=== PATIENT | female | born 1970 | race Caucasian/White ===

== ENCOUNTER 2017-12-31 12:47 | Outpatient (CLI) | payer MEDICARE | END 2017-12-31 12:48 | disposition home or self-care (01) | LOC: BICMAMMO 12:47 | PROVIDERS: ATTEND Family Medicine | DX: Z12.31 Encounter for screening mammogram for malignant neoplasm of breast (principal); Z80.3 Family history of malignant neoplasm of breast | CPT/HCPCS: 77063; 77067 ==

== ENCOUNTER 2018-04-02 19:32 | Emergency (ER) | payer MEDICARE, OTHER ==
[~2018-04-02 19:32] MED LIST: ISOVUE-370 76%-LOCM 1 ML ONE
[2018-04-02 20:26] LABS: #Eosinphils 0.7 thou/uL (0.0-0.7); #Lymphocytes 1.4 thou/uL (1.20-3.40); #Monocytes 0.9 thou/uL (0.11-0.59); #Neutrophils 11.7 thou/uL (1.40-6.50); %Basophils 0.3 % (0.0-1.0); %Eosinophils 4.9 % (0.0-10.0); %Lymphocytes 9.7 % (21.0-51.0); %Monocytes 5.8 % (0.0-10.0); %Neutrophils 79.3 % (42.0-75.0); Mean Corpuscular HGB CONC 34.1 g/dL (32.0-36.0); Mean Corpuscular Hemoglobin 32.9 pg (27.0-31.0); Mean Corpuscular Volume 96.5 fL (78.0-98.0); Mean Platelet Volume 8.5 fL (7.4-10.4); Platelet Count 241 thou/uL (130-400); RBC Distribution Width 12.8 % (11.5-14.5); Red Blood Cell (RBC) Count 4.25 mill/uL (4.20-5.40); White Blood Cell (WBC) Count 14.7 thou/uL (4.8-10.8)
[2018-04-02] MEDS ORDERED: Ondansetron HCl/PF 4 MG/2 ML Vial ONE (20:30)
[2018-04-02] MEDS ORDERED: Acetaminophen 500 MG TAB ONE (20:37)
[2018-04-02 20:50] LABS: ALT (SGPT) 7 U/L (8-55); AST (SGOT) 16 U/L (5-34); Albumin 4.3 g/dL (3.5-5.0); Alkaline Phosphatase 96 U/L (40-150); Anion Gap 13 mmol/L (10-20); BUN (Urea Nitrogen) 19 mg/dL (7.0-18.7); Bilirubin, Total 0.3 mg/dL (0.2-1.2); CK (CPK) 62 U/L (29-168); Calc. Creatinine Clearance 0 mL/min (70-130); Calcium 9.3 mg/dL (7.8-10.44); Carbon Dioxide 24 mmol/L (22-29); Chloride 109 mmol/L (98-107); Estimated GFR-MDRD 45; Globulin 2.9 g/dL (2.4-3.5); Glucose 80 mg/dL (70-105); Lipase 55 U/L (8-78); Potassium 4.3 mmol/L (3.5-5.1); Protein, Total 7.2 g/dL (6.0-8.3); Sodium 142 mmol/L (136-145)
[2018-04-02 20:54] LABS: CKMB 1.3 ng/mL (0-6.6); Troponin I Less than 0.010 ng/mL (< 0.028)
--- NOTE | 2018-04-02 21:31 | CT ---
CT OF ABDOMEN AND PELVIS 04/02/18 COMPARISON: None. HISTORY: Nausea, vomiting, cramping and diarrhea. TECHNIQUE: Serial axial CT imaging obtained at 5 mm intervals from lung bases through pubic symphysis with IV co ntrast. Coronal reformatted imaging obtained. FINDINGS: the imaged lung bases are unremarkable. There is no free intraperitoneal air or fluid. No focal liver lesion. The gallbladder and spleen are unremarkable. The pancreas, adrenal glands, and kidneys are unremarkable. The appendix is visualized and is within normal limits. The uterus is lobulated and demonstrates internal coarse calcifications suggesting fibroids. There is prominent diverticulosis of the lower descending colon a well as the sigmoid colon with no e vidence for diverticulitis. There is no evidence for large or small bowel obstruction. There may be minimal inflammatory stranding adjacent to the sigmoid colon superiorly although this is subtle and uncertain. In the proper clinical setting, a mild degree of diverticulitis cannot be excl uded. Vascular structures appear patent. No lymphadenopathy is seen. No acute osseous abnormality. IMPRESSION: 1. Extensive diverticulosis of the sigmoid colon and lower descending colon. A very mild degree of diverticulitis cannot be excluded. No evidence for bowel obstruction or free intraperitoneal air. 2. Normal appearance of the appendix. 3. Findings suggesting uterine fibroids. POS: [facility]
[2018-04-02 21:40] LABS: Bilirubin Negative (Negative); Blood, Urine Negative (Negative); Clarity CLEAR (Clear); Glucose, Urine (Dipstick) Negative (Negative); Leukocyte Negative (Negative); Nitrite Negative (Negative); Protein, Urine (Dipstick) Negative (Neg-Trace); Urobilinogen 0.2 mg/dL (0.2-1.0)
[2018-04-02 21:42] LABS: Specific Gravity, Urine Greater than 1.060 (1.002-1.036)
[2018-04-02] MEDS ORDERED: diphenhydrAMINE 50 MG/ML VIAL ONE (22:09)
[2018-04-02] MEDS ORDERED: Metoclopramide HCl 10 MG/2 ML VIAL ONE (22:09)
== END 2018-04-02 23:10 | disposition home or self-care (01) ==
LOC: ERS 19:32
DX: E86.0 Dehydration (principal); K52.9 Noninfective gastroenteritis and colitis, unspecified; R55 Syncope and collapse; K58.9 Irritable bowel syndrome, unspecified; I10 Essential (primary) hypertension; Z79.899 Other long term (current) drug therapy
CPT/HCPCS: 36415; 74177; 80053; 81003; 82550; 82553; 83690; 83880; 84484; 85025; 93005; 96361; 96374; J1200; J2405; J2765

== ENCOUNTER 2018-04-04 11:09 | Emergency (ER) | payer MEDICARE ==
[2018-04-04 11:42] LABS: #Basophils 0.1 thou/uL (0.0-0.2); #Eosinphils 1.4 thou/uL (0.0-0.7); #Lymphocytes 2.8 thou/uL (1.20-3.40); #Monocytes 0.6 thou/uL (0.11-0.59); #Neutrophils 3.9 thou/uL (1.40-6.50); %Monocytes 6.8 % (0.0-10.0); %Neutrophils 44.3 % (42.0-75.0); Hemoglobin 14.1 g/dL (12.0-16.0); Mean Corpuscular HGB CONC 33.7 g/dL (32.0-36.0); Mean Corpuscular Hemoglobin 32.5 pg (27.0-31.0); Mean Corpuscular Volume 96.5 fL (78.0-98.0); Mean Platelet Volume 8.6 fL (7.4-10.4); Platelet Count 233 thou/uL (130-400); RBC Distribution Width 12.8 % (11.5-14.5); Red Blood Cell (RBC) Count 4.33 mill/uL (4.20-5.40); White Blood Cell (WBC) Count 8.9 thou/uL (4.8-10.8)
[2018-04-04 12:14] LABS: ALT (SGPT) 8 U/L (8-55); AST (SGOT) 14 U/L (5-34); Albumin 4.2 g/dL (3.5-5.0); Alkaline Phosphatase 91 U/L (40-150); Anion Gap 11 mmol/L (10-20); BUN (Urea Nitrogen) 12 mg/dL (7.0-18.7); Bilirubin, Total 0.4 mg/dL (0.2-1.2); Calc. Creatinine Clearance 0 mL/min (70-130); Calcium 9.7 mg/dL (7.8-10.44); Carbon Dioxide 23 mmol/L (22-29); Chloride 109 mmol/L (98-107); Estimated GFR-MDRD 70; Globulin 2.8 g/dL (2.4-3.5); Glucose 103 mg/dL (70-105); Lipase 35 U/L (8-78); Potassium 4.4 mmol/L (3.5-5.1); Sodium 139 mmol/L (136-145)
--- NOTE | 2018-04-09 11:39 | EKG ---
Test Reason : Blood Pressure : / mmHG Vent. Rate : 056 BPM Atrial Rate : 056 BPM P-R Int : 162 ms QRS Dur : 070 ms QT Int : 430 ms P-R-T Axes : 049 014 049 degrees QTc Int : 414 ms Sinus bradycardia with frequent Premature ventricular complexes Low voltage QRS Borderline ECG Confirmed by VERÓNICA ANDERSON DO ([id number]), news videotape editor MONI ESPINAL ([id number]) on 04/09/2018 11:39:04 AM Referred By: Confirmed By:VERÓNICA ANDERSON DO
== END 2018-04-04 13:32 | disposition home or self-care (01) ==
LOC: ERS 11:09
DX: K57.92 Diverticulitis of intestine, part unspecified, without perforation or abscess without bleeding (principal); I95.9 Hypotension, unspecified; M79.7 Fibromyalgia; E03.9 Hypothyroidism, unspecified; I10 Essential (primary) hypertension; Z79.899 Other long term (current) drug therapy
CPT/HCPCS: 80053; 83690; 85025; 93005

== ENCOUNTER 2018-06-24 09:58 | Outpatient (CLI) | payer MEDICARE | END 2018-06-24 09:59 | disposition home or self-care (01) | LOC: BICMAMMO 09:58 | PROVIDERS: ATTEND Family Medicine | DX: N60.02 Solitary cyst of left breast (principal); Z80.3 Family history of malignant neoplasm of breast | CPT/HCPCS: 77065; G0279 ==

== ENCOUNTER 2018-10-06 16:14 | Outpatient (CLI) | payer MEDICARE ==
--- NOTE | 2018-10-06 17:31 | RAD ---
AP PELVIS: History: Left hip pain. FINDINGS: Both femoral heads show normal contour. No fracture or osseous lesion involving the pelvis or hips. V gold mild symmetric degenerative changes at both hips. IMPRESSION: No acute abnormality. POS: C
--- NOTE | 2018-10-06 19:11 | RAD ---
LEFT HIP TWO VIEWS: History: Left hip pain. FINDINGS: Femoral head contour is normally maintained. There is no evidence of fracture. Minimal degenerative c hange noted with mild spurring from the acetabulum and perhaps mild joint narrowing. No acute osseous abnormality. IMPRESSION: Evidence of mild degenerative change. POS: C
== END 2018-10-06 16:15 | disposition home or self-care (01) ==
LOC: BICRAD 16:14
PROVIDERS: ATTEND Family Medicine
DX: M25.552 Pain in left hip (principal); M16.12 Unilateral primary osteoarthritis, left hip
CPT/HCPCS: 72170

== ENCOUNTER 2018-11-09 10:14 | Outpatient (CLI) | payer MEDICARE ==
--- NOTE | 2018-11-09 14:08 | MRI ---
MRI LUMBAR SPINE WITHOUT CONTRAST: HISTORY: Spinal stenosis of the lumbar region. Back pain. Left hip pain. Bilateral leg numbness. COMPARISON: None. FINDINGS: There is appropriate T1 marrow signal intensity of the lumbar spine. Vertebral body height is mainta ined, and there is no fracture. No significant STIR hyperintensity to suggest vertebral body edema o r ligamentous injury. Symmetric signal intensity of psoas muscles. Appropriate signal intensity of the visualized solid or sendy. The conus medullaris terminates at the inferior aspect of L1. T12-L1: Adequate disk hydration. No significant central canal stenosis or neural foraminal narrowin g. L1-L2: Adequate disk hydration. No significant central canal stenosis. The foramina are patent. L2-L3: Adequate disk hydration. No significant central canal stenosis. The foramina are patent. L3-L4: Adequate disk hydration. Mild ligamentum flavum thickening and facet hypertrophy. Minimal c entral canal stenosis. The neural foramina are patent. L4-L5: Adequate disk hydration. Minimal generalized disk bulge, along with minimal ligamentum flavu m thickening. There is moderate bilateral facet hypertrophy with fluid in both facet joints. Overal l, there is mild stenosis of the thecal sac. There is a T2 hyperintensity in the right subarticular zone, measuring 0.3 x 0.6 cm. Synovial cyst is favored. There is mass effect and partial obscuratio n of the traversing left L5 nerve root. The left subarticular zone is unremarkable. There is mild t o moderate bilateral neural foraminal narrowing. L5-S1: No significant central canal stenosis or foraminal narrowing. There is bilateral facet hyper trophy with fluid in both facet joints. IMPRESSION: 1. Posterior element hypertrophy at L4-L5 and at L5-S1. There is fluid in both facet joints. 2. Narrowing of the right subarticular zone at L4-L5 due to a synovial cyst. There is partial obscu ration of the traversing right L5 nerve root. POS: [facility]
== END 2018-11-09 10:15 | disposition home or self-care (01) ==
LOC: TBSIIMAG 10:14 → MRI 10:15
PROVIDERS: ATTEND Orthopaedic Surgery
DX: M48.061 Spinal stenosis, lumbar region without neurogenic claudication (principal); M71.38 Other bursal cyst, other site
CPT/HCPCS: 72148

== ENCOUNTER 2018-11-25 14:35 | Inpatient (IN) | payer MEDICARE ==
[2018-11-25] MEDS ORDERED: Fentanyl 100 MCG/2 ML VIAL ONE ×2 (15:34→16:21)
[2018-11-25 15:59] LABS: #Basophils 0.1 thou/uL (0.0-0.2); #Eosinphils 0.1 thou/uL (0.0-0.7); #Monocytes 1.2 thou/uL (0.11-0.59); #Neutrophils 13.7 thou/uL (1.40-6.50); %Basophils 0.6 % (0.0-1.0); %Eosinophils 0.4 % (0.0-10.0); %Lymphocytes 16.3 % (21.0-51.0); %Monocytes 6.7 % (0.0-10.0); Hemoglobin 15.9 g/dL (12.0-16.0); Mean Corpuscular HGB CONC 31.7 g/dL (32.0-36.0); Mean Corpuscular Hemoglobin 31.1 pg (27.0-31.0); Mean Platelet Volume 8.4 fL (7.4-10.4); Platelet Count 300 thou/uL (130-400); RBC Distribution Width 13.1 % (11.5-14.5); Red Blood Cell (RBC) Count 5.11 mill/uL (4.20-5.40); White Blood Cell (WBC) Count 18.1 thou/uL (4.8-10.8)
--- NOTE | 2018-11-25 16:05 | RAD ---
FExam: Chest one view HISTORY:Syncope Comparison: None FINDINGS: Cardiac silhouette: Normal Pulmonary vessels: Normal Costophrenic angles: Clear LUNGS: No masses or consolidation. Pneumothorax: None Osseous abnormalities: None IMPRESSION: No acute cardiopulmonary process.
[2018-11-25 16:21] LABS: ALT (SGPT) 12 U/L (8-55); AST (SGOT) 15 U/L (5-34); Albumin 4.1 g/dL (3.5-5.0); Alkaline Phosphatase 96 U/L (40-150); Anion Gap 15 mmol/L (10-20); BUN (Urea Nitrogen) 29 mg/dL (7.0-18.7); Bilirubin, Total 0.5 mg/dL (0.2-1.2); Calc. Creatinine Clearance 0 mL/min (70-130); Calcium 9.3 mg/dL (7.8-10.44); Carbon Dioxide 22 mmol/L (22-29); Chloride 105 mmol/L (98-107); Estimated GFR-MDRD 29; Globulin 3.2 g/dL (2.4-3.5); Glucose 92 mg/dL (70-105); Potassium 3.8 mmol/L (3.5-5.1); Protein, Total 7.3 g/dL (6.0-8.3); Sodium 138 mmol/L (136-145)
[2018-11-25] MEDS ORDERED: cefTRIAXone\\ROCEPHIN 2 GM VIAL ONE (16:21)
--- NOTE | 2018-11-25 17:23 | MRI ---
[facility] OF LUMBAR SPINE, NONCONTRAST: COMPARISON: Reference is made to 11/09/2018 exam. CLINICAL HISTORY: Lumbar spine pain. FINDINGS: There is motion artifact which limits detail. Interval development of a broad-based disc protrusion at L4-5 superimposed upon disc-osteophyte compl ex, resulting in moderate central canal narrowing and compromise of the traversing left L5 nerve root , although limited by motion artifact. Otherwise, please reference the recently dictated MRI lumbar s pine 11/09/2018 for details regarding multilevel degenerative findings. There is no interval compressi on fracture or acute marrow edema. No interval significant cord compression at the level of conus med ullaris. No significant, interval acute retroperitoneal pathology is seen. Previously described degenerative f indings at the facet joints are grossly stable. IMPRESSION: Interval development of broad-based disc protrusion at L4-5 as discussed above with moderate narrowin g of the central canal and impingement of the left L5 nerve root. Transcribed Date/Time: 11/26/2018 8:06 AM
--- NOTE | 2018-11-25 17:45 | MRI ---
[facility] THORACIC SPINE, NONCONTRAST: CLINICAL HISTORY: Back pain. FINDINGS: There is significant patient motion throughout the duration of the exam which does preclude reliable assessment. This markedly limits evaluation of the thoracic spinal cord precluding detection of intri nsic cord signal abnormality. No obvious extrinsic mass effect upon the thoracic spinal cord. Subtle disc pathology may be obscured by the degree of motion. Suggestion of multilevel mild disc bulge/disc -osteophyte complex formation of the mid thoracic spine effacing ventral thecal sac, although not wel l discerned on the basis of this exam. No obvious acute marrow edema, compression deformity or signif icant retropulsion of bone. IMPRESSION: Mild multilevel disc bulge/disc-osteophyte complex formation suggested at mid thoracic spine although not reliably assess due to degree of extensive, persistent patient motion. There is a prominent cord signal alteration, as well favored to reflect artifact although the spinal cord is not reliably asse ssed due to the motion distortion. Transcribed Date/Time: 11/26/2018 8:09 AM
[2018-11-25] MEDS ORDERED: metroNIDAZOLE 500 MG/100 ML BAG ONE (18:07)
[2018-11-25] MEDS ORDERED: Morphine 4 MG/ML VIAL ONE (18:36)
[2018-11-25 18:48] LABS: Bilirubin Negative (Negative); Blood, Urine Negative (Negative); Clarity CLOUDY (Clear); Glucose, Urine (Dipstick) Negative (Negative); Leukocyte Trace (Negative); Nitrite Negative (Negative); Protein, Urine (Dipstick) Negative (Neg-Trace); Specific Gravity, Urine 1.012 (1.002-1.036); Urobilinogen 0.2 mg/dL (0.2-1.0)
[2018-11-25 18:51] LABS: Bacteria/HPF None Seen HPF (None Seen); Hyaline Casts/LPF 4-6 HYALINE CAST LPF (0-3 Hyaline); Pathc Cast-AUWi Flag 0.95 (0-2.49)
[2018-11-25] MEDS ORDERED: HYDROmorphone 0.5 MG/0.5 ML SYRINGE ONE ×2 (19:30→21:31)
[2018-11-25] MEDS ORDERED: Ondansetron PF 4 MG/2 ML Vial ONE (19:30)
[2018-11-25] MEDS ORDERED: KETAMINE IVPB SCH (20:15)
[2018-11-25] MEDS ORDERED: SODIUM CHLORIDE 0.9% IVPB SCH (20:15)
[2018-11-25 20:42] LABS: Lactic Acid 1.9 mmol/L (0.5-2.2)
--- NOTE | 2018-11-25 21:22 | CT ---
FEXAM: Abdomen and pelvic CT scan without contrast: HISTORY: Low back pain with nausea, and acute kidney injury related to dehydration COMPARISON: 02 April 2018 FINDINGS: The visualized lung bases are clear aside from mild atelectasis. Liver: Hepatic steatosis Gallbladder:Moderately distended Pancreas:No inflammation Spleen:Unremarkable. Adrenal glands:Unremarkable. Kidneys:No renal calculus or acute obstruction.No obvious renal lesion by noncontrast assessment Incompletely evaluated bowel without IV or enteric contrast. There are scattered colonic diverticula Decompressed urinary bladder, limiting assessment No adenopathy within the abdomen or pelvis. No ascites. No acute osseous abnormalities. IMPRESSION: No urolithiasis or obstructive uropathy. Redemonstration of colonic diverticulosis. Evaluation was limited on the basis of noncontrast technique.
[2018-11-25] MEDS ORDERED: HYDROcodone/Acetaminophen 10/325 mg Tablet PO PRN (21:25)
[2018-11-25] MEDS ORDERED: Acetaminophen 325 MG TAB PO PRN (21:25)
[2018-11-25] MEDS ORDERED: Ondansetron PF 4 MG/2 ML Vial IVP PRN (21:25)
[2018-11-25] MEDS ORDERED: Lorazepam 2 MG/ML VIAL ONE (21:30)
[2018-11-25] MEDS ORDERED: methylPREDNISolone Sod Succ/PF 125 MG/2 ML VIAL ONE (21:31)
[2018-11-25 22:57] VITALS: BMI 39.6
[2018-11-25] MEDS: Sodium Chloride 0.9% 1,000 ML IV SCH (23:44)
[2018-11-25] MEDS: methylPREDNISolone Sod Succ 40 MG VIAL IVP SCH (23:59)
[2018-11-26] MEDS ORDERED: HYDROmorphone 10 mg/100 ml CADD IV PRN (00:11)
[2018-11-26] MEDS ORDERED: Ketamine 50 MG/ML (10ML VIAL) SLOW IVP SCH ×2 (00:15→01:30)
[2018-11-26] MEDS ORDERED: Acetaminophen 1,000 MG in Premix Bag 1 BAG IVPB SCH (00:15)
[2018-11-26] MEDS ORDERED: Sodium Chloride 0.9% 500 ML IVPB SCH (00:15)
[2018-11-26] MEDS ORDERED: tiZANidine HCl 4 MG TAB PO SCH (01:00)
[2018-11-26] MEDS: Lorazepam 2 MG/ML VIAL SLOW IVP PRN (01:23)
[2018-11-26] MEDS ORDERED: HYDROmorphone 0.5 MG/0.5 ML SYRINGE SLOW IVP SCH (01:30)
--- NOTE | 2018-11-26 01:31 | HP ---
HISTORY OF PRESENT ILLNESS: This is a 48-year-old white female with chronic low back pain who presents with severe right low back pain. On 11/17, the patient saw Dr. Parrish and had a lumbar epidural steroid injection and a drainage of a right L5 synovial cyst. The patient did well until earlier today. At approximately noon, she developed acute onset of right low back pain. She came to the ER and since then has been writhing with pain, unresponsive to fentanyl, morphine, and Dilaudid. The patient has now received ketamine and seems to be responding to this. She was also noted to be hypotensive when she 1st came in and was given fluids and which responded. White count was elevated at 18,000 with a creatinine of 1.89 and previously it was normal. PAST MEDICAL HISTORY: Includes fibromyalgia, on disability, tobacco abuse since 14 years of age, hyperlipidemia, hypertension, hypothyroidism, GERD, depression, HSV. FAMILY HISTORY: Father with diabetes, hypertension. Mother with hypertension and some unknown cancer. Paternal grandmother with breast cancer. Maternal great grandmother with breast cancer. Uncle with diabetes. SOCIAL HISTORY: She is . She is a smoker, less than 1/2 pack per day for 30 to 35 years. Alcohol occasionally. MEDICATIONS: Include; 1. Pristiq 50 daily. 2. Sulindac 150 daily. 3. Lyrica 200 b.i.d. 4. D3 once a day. 5. Lisinopril 20 daily. 6. Zofran p.r.n. 7. Dicyclomine 20 q.i.d. p.r.n. 8. Crestor 10 daily. 9. Levothyroxine 100 daily. 10. Omeprazole 40 daily. 11. Tramadol 50 p.r.n. 12. Tylenol No. 3 p.r.n. 13. Tizanidine 4 t.i.d. ALLERGIES: TO SULFA. REVIEW OF SYSTEMS: As above. PHYSICAL EXAMINATION: VITAL SIGNS: Blood pressure 100/70, heart rate 100, afebrile. GENERAL: The patient is writhing in the bed. HEENT: Clear. NECK: Supple. HEART: Regular rate and rhythm. LUNGS: Clear. ABDOMEN: Soft, does not appear to have any tenderness. Tender back in the region of the right L3-L5. No pinpoint tenderness. EXTREMITIES: With no edema. LABORATORY DATA: White count 18.8, H and H 15 and 50, platelet of 300. Sodium 138, potassium 3.8, chloride 105, creatinine 1.84, BUN 29. Liver functions normal. Urine with 7-10 wbc's, 4 to 6 squamous cells, 4 to 6 rbc's. Lumbar MRI shows broad based disk protrusion at L4-L5 with moderate narrowing and central canal impingement of the left L5 nerve root. Thoracic MRI, poor quality film due to motion. Chest x-ray, negative. ASSESSMENT: 1. Severe right low back pain, unknown etiology. 2. Status post epidural steroid injection and drainage of a synovial cyst at L5. 3. Dehydration. 4. Elevated creatinine and elevated white count, may be a reactive leukocytosis. 5. Fibromyalgia/depression. 6. Gastroesophageal reflux disease. 7. Hypertension/hyperlipidemia. 8. Morbid obesity. 9. Tobacco abuse. 10. Hypothyroid. PLAN: 1. Anesthesia for pain control. 2. CT abdomen to rule out renal pathology. 3. Discussed with Neurosurgery. They do not feel there is a neurosurgical issue causing this pain. 4. Hydration. 5. Ketamine. 6. Follow creatinine closely. Job ID: [id number]
[2018-11-26] MEDS: Sodium Chloride 0.9% 1,000 ML IV SCH ×5 (03:50→22:06)
[2018-11-26] MEDS: Bacteriostatic Water 30 ML VIAL IVP SCH ×2 (06:28→12:03)
[2018-11-26] MEDS: methylPREDNISolone Sod Succ 40 MG VIAL IVP SCH ×3 (06:28→18:09)
[2018-11-26] MEDS: Famotidine/PF 20 mg/2ml Vial SLOW IVP SCH (09:06)
[2018-11-26] MEDS: Enoxaparin Sodium 40 MG/0.4 ML SYRINGE SC SCH (09:06)
[2018-11-26] MEDS: tiZANidine HCl 4 MG TAB PO SCH ×3 (09:07→20:31)
[2018-11-26 09:20] LABS: #Eosinphils 0.1 thou/uL (0.0-0.7); #Lymphocytes 1.1 thou/uL (1.20-3.40); #Monocytes 0.1 thou/uL (0.11-0.59); #Neutrophils 9.9 thou/uL (1.40-6.50); %Basophils 0.2 % (0.0-1.0); %Eosinophils 0.5 % (0.0-10.0); %Lymphocytes 9.6 % (21.0-51.0); %Neutrophils 88.6 % (42.0-75.0); Hemoglobin 14.3 g/dL (12.0-16.0); Mean Corpuscular HGB CONC 32.8 g/dL (32.0-36.0); Mean Corpuscular Hemoglobin 31.6 pg (27.0-31.0); Mean Corpuscular Volume 96.2 fL (78.0-98.0); Mean Platelet Volume 8.4 fL (7.4-10.4); Platelet Count 228 thou/uL (130-400); RBC Distribution Width 12.9 % (11.5-14.5); Red Blood Cell (RBC) Count 4.52 mill/uL (4.20-5.40); White Blood Cell (WBC) Count 11.2 thou/uL (4.8-10.8)
[2018-11-26 09:36] LABS: ALT (SGPT) 9 U/L (8-55); AST (SGOT) 14 U/L (5-34); Albumin 3.7 g/dL (3.5-5.0); Alkaline Phosphatase 87 U/L (40-150); Anion Gap 9 mmol/L (10-20); BUN (Urea Nitrogen) 20 mg/dL (7.0-18.7); Bilirubin, Total 0.3 mg/dL (0.2-1.2); Calc. Creatinine Clearance 116 mL/min (70-130); Calcium 8.6 mg/dL (7.8-10.44); Carbon Dioxide 25 mmol/L (22-29); Chloride 111 mmol/L (98-107); Estimated GFR-MDRD 59; Globulin 2.6 g/dL (2.4-3.5); Glucose 113 mg/dL (70-105); Potassium 4.9 mmol/L (3.5-5.1); Protein, Total 6.3 g/dL (6.0-8.3); Sodium 140 mmol/L (136-145)
--- NOTE | 2018-11-26 12:59 | CON ---
DATE OF CONSULTATION: 11/26/2018 HISTORY OF PRESENT ILLNESS: Ms. Lim is a 48-year-old female, admitted with severe low back pain. She underwent lumbar spine and thoracic spine MRI yesterday as well as an abdominal CT without contrast. No clear explanation for her discomfort was identified, although she does have significant degenerative disease in her spine. Her lumbar spine MRI compared to a November 09, 2018, exam showed a broad-based disk protrusion at L4-L5 with narrowing of the central canal and impingement of left L5 nerve root. This is apparently new. Her thoracic spine MRI was complicated by motion artifact, but there were multiple disk osteophyte complexes. PAST MEDICAL HISTORY: Remarkable for; 1. Fibromyalgia. 2. History of smoking. 3. Lipid disorder. 4. Hypertension. 5. History of hypothyroidism, on replacement. 6. Reflux disease. 7. History of depression. FAMILY HISTORY: Positive for diabetes and hypertension as well as cancer. SOCIAL HISTORY: Half pack a day smoker for 30 to 35 years. She is not a drinker. MEDICATIONS: Prior to admission reviewed. ALLERGIES: REPORTS AN ALLERGY TO SULFA. REVIEW OF SYSTEMS: 10 point review of systems completed, remarkable only for pain. PHYSICAL EXAMINATION: GENERAL: States she is much better than she was last night. VITAL SIGNS: She is afebrile, heart rate 72, respiratory rate is 13, and oximetry is 98%. VITAL SIGNS: Pupils are equal. Sclerae are anicteric. NECK: Supple. No lymphadenopathy. LUNGS: Clear. HEART: Regular rhythm. S1 and S2 normal. ABDOMEN: Soft and nontender. EXTREMITIES: Without asymmetry or edema. LABORATORY DATA: White count 11.2, hemoglobin 14.3, and platelets 228,000. Sodium 140, potassium 4.9, chloride 111, bicarb 25, BUN 20, creatinine 1.0, and glucose 113. IMPRESSION AND PLAN: Severe low back pain that was new. She did have a new disk protrusion at L4-L5 with narrowing of the central canal and left L5 nerve root impingement. It is unclear whether or not this is causing all of her symptoms. I was told moreover symptoms were on the opposite side i.e. the right. At this point in time, she says she has minimal discomfort, but she is also receiving considerable amount of narcotics. From Pulmonary/Respiratory/Critical Care standpoint, she appears stable at this time. Lab work has been reviewed, answered all of her questions. TIME SPENT: This is a 70-minute consult, with greater than 50% of the time spent on the unit coordinating care. Job ID: [id number] HUMBLE
--- NOTE | 2018-11-26 14:57 | CON ---
DATE OF CONSULTATION: 11/26/2018 CONSULTING PHYSICIAN: Rodríguez Corbin MD IMPRESSION: Back pain. PLAN: Deferred to Pain Management. HISTORY OF PRESENT ILLNESS: Ms. Lim is a 48-year-old obese white female, who has been seen by Dr. Parrish for pain management. She complains of lower back pain. She had an epidural steroid injection, which she describes as a drainage of a cyst. Her pain became worse and she came to the emergency room. She was admitted to the ICU for narcotics. She has no other neurologic complaints other than she felt lightheaded and fainted prior to admission. PAST MEDICAL HISTORY: Otherwise negative. ALLERGIES: SULFA AND PINEAPPLE. PHYSICAL EXAMINATION: GENERAL: She is alert, middle-aged woman, lying in bed, in no apparent distress. VITAL SIGNS: Blood pressure 138/82, pulse 73, respirations 15, and saturations 97%. HEENT: Within normal limits. NEUROLOGIC: She is alert and appropriate. Her speech is fluent and clear. Exam is nonfocal. SUMMARY: Middle-aged woman with back pain, not sure while I was consulted. I will defer to her pain physician. Job ID: [id number]
--- NOTE | 2018-11-26 17:23 | CON ---
DATE OF CONSULTATION: 11/26/2018 SUBJECTIVE: The patient is little groggy this morning, but is awake and alert. She complains of a headache. Her back is significantly improved from yesterday. She still gets occasional spasm with movement. I reviewed her medications with her when she was coherent. She does take tizanidine 4 mg b.i.d., Tylenol No. 3 b.i.d. p.r.n. usually 1 to 2 per day, Lyrica 150 b.i.d. and sulindac. OBJECTIVE: VITAL SIGNS: Temperature 98.7, blood pressure 110/70, heart rate 69, respirations 13, pulse ox 98. GENERAL: The patient is groggy with still some back discomfort, but not writhing severely like yesterday. HEART: Regular rate and rhythm. LUNGS: Clear. ABDOMEN: Soft, nontender. EXTREMITIES: Moves all extremities. Normal motor sensory bilaterally. LABORATORY DATA: White count 11.2, hemoglobin and hematocrit are 14 and 43, platelet is 228. Sodium 140, potassium 4.9, chloride 111, creatinine 1.0, and BUN 20. ASSESSMENT: 1. Lumbar paraspinal muscle spasm, right worse than left. 2. Status post epidural steroid injection and drainage of a synovial cyst at L5-3 dehydration improving, although the BUN and creatinine ratio is still elevated. 3. Elevated white count decreased. 4. Fibromyalgia. 5. Depression. 6. Reflux. 7. Hypertension. 8. Hyperlipidemia. 9. Morbid obesity. 10. Tobacco abuse. 11. Hypothyroid. PLAN: 1. Maintain DOOR FITTER for today. Begin the weaning process this evening or tomorrow. 2. Once began weaning the DOOR FITTER, we will restart the Lyrica. 3. Continue hydration. 4. We will continue to follow. Job ID: [id number]
[2018-11-26] MEDS ORDERED: niCARdipine HCl 25 MG in Sodium Chloride 0.9% 250 ML 240 ML IVPB SCH (22:00)
[2018-11-27] MEDS: Bacteriostatic Water 30 ML VIAL IVP SCH ×3 (00:02→05:47)
[2018-11-27] MEDS: methylPREDNISolone Sod Succ 40 MG VIAL IVP SCH ×2 (00:02→05:36)
[2018-11-27] MEDS: Lorazepam 2 MG/ML VIAL SLOW IVP PRN ×2 (04:07→07:55)
[2018-11-27 05:22] LABS: #Lymphocytes 1.3 thou/uL (1.20-3.40); #Monocytes 0.5 thou/uL (0.11-0.59); #Neutrophils 17.3 thou/uL (1.40-6.50); %Eosinophils 0.1 % (0.0-10.0); %Lymphocytes 6.9 % (21.0-51.0); %Monocytes 2.5 % (0.0-10.0); %Neutrophils 90.5 % (42.0-75.0); Hemoglobin 13.6 g/dL (12.0-16.0); Mean Corpuscular HGB CONC 33.8 g/dL (32.0-36.0); Mean Corpuscular Hemoglobin 32.4 pg (27.0-31.0); Mean Corpuscular Volume 95.9 fL (78.0-98.0); Mean Platelet Volume 8.7 fL (7.4-10.4); Platelet Count 251 thou/uL (130-400); RBC Distribution Width 12.8 % (11.5-14.5); White Blood Cell (WBC) Count 19.1 thou/uL (4.8-10.8)
[2018-11-27] MEDS: Sodium Chloride 0.9% 1,000 ML IV SCH ×3 (05:37→19:42)
[2018-11-27 05:42] LABS: ALT (SGPT) 13 U/L (8-55); AST (SGOT) 16 U/L (5-34); Albumin 3.7 g/dL (3.5-5.0); Alkaline Phosphatase 80 U/L (40-150); Anion Gap 12 mmol/L (10-20); BUN (Urea Nitrogen) 18 mg/dL (7.0-18.7); Bilirubin, Total 0.3 mg/dL (0.2-1.2); Calc. Creatinine Clearance 122 mL/min (70-130); Carbon Dioxide 20 mmol/L (22-29); Chloride 111 mmol/L (98-107); Estimated GFR-MDRD 63; Globulin 2.6 g/dL (2.4-3.5); Glucose 132 mg/dL (70-105); Potassium 4.3 mmol/L (3.5-5.1); Protein, Total 6.3 g/dL (6.0-8.3); Sodium 139 mmol/L (136-145)
[2018-11-27] MEDS: Enoxaparin Sodium 40 MG/0.4 ML SYRINGE SC SCH (09:32)
[2018-11-27] MEDS: tiZANidine HCl 4 MG TAB PO SCH ×3 (09:32→21:27)
[2018-11-27] MEDS: Famotidine/PF 20 mg/2ml Vial SLOW IVP SCH (09:32)
[2018-11-27] MEDS ORDERED: Bacteriostatic Water 30 ML VIAL IVP PRN (10:30)
[2018-11-27] MEDS ORDERED: ALPRAZolam 0.5 MG TAB PO SCH (11:15)
[2018-11-27] MEDS ORDERED: Venlafaxine HCl XR 75 MG CAP PO SCH (11:15)
--- NOTE | 2018-11-27 14:21 | PRG ---
DATE OF SERVICE: 11/27/2018 SUBJECTIVE: Claudia Lim has been doing well overnight. She denies having any pain now. She is actually a little bit slurry with her speech because of her medicines. I have explained to her mother and to her that we need to be trying to minimize her multiple medications to get her to a point where she is functional, but has pain control. Still she had hypertension last night, but it turns out the blood pressure cuff was on her leg. Her arm cuff pressures today have been normal. She is in sinus rhythm. She is in no distress. OBJECTIVE: LUNGS: Clear. HEART: Regular rhythm. ABDOMEN: Soft. EXTREMITIES: Without asymmetry or edema. LABORATORY DATA: White count is 19.1, hemoglobin 13.6, platelets 251. Sodium 139, potassium 4.3, chloride 111, bicarb 20, BUN 18, creatinine 0.95. IMPRESSION: 1. Low back pain, improved. 2. Disk herniation. It does not entirely explain all of her symptoms. She will be transferred out of the Critical Care Unit. We will sign off. Job ID: [id number]
--- NOTE | 2018-11-27 14:44 | PRG ---
DATE OF SERVICE: 11/27/2018 TIME SEEN: 10:30 a.m. SUBJECTIVE: The patient is awake and alert. She is crying, wanting to go home. She is not writing in bed like the past 2 days. She is not complaining of back pain at this time. She is more concerned about unable to sleep. OBJECTIVE: VITAL SIGNS: Temperature 98.2, pulse is 95, blood pressure 149/98, and O2 saturation 93%. HEART: Regular rate and rhythm. LUNGS: Clear. ABDOMEN: Soft and nontender. EXTREMITIES: With no edema. BACK: Appears to have minimal tenderness. LABORATORY DATA: White count 19.1 and H and H of 13 and 40. Electrolytes normal. Creatinine 0.95, BUN 18, and glucose 132. Urine culture negative. One blood culture positive for Staph epidermidis consistent with contaminant. ASSESSMENT: 1. Lumbar paraspinal muscle spasm, much improved. 2. Status post epidural steroid injection and drainage of a synovial cyst. 3. Elevated white count fluctuating. 4. Fibromyalgia. 5. Depression. 6. Reflux. 7. Hypertension. 8. Hyperlipidemia. 9. Morbid obesity. 10. Tobacco abuse. 11. Hypothyroid. PLAN: 1. Wean ASBESTOS HANDLER pump today. 2. Restart Lyrica at 100 b.i.d. 3. Start Xanax 0.5 one p.o. t.i.d. 4. Decrease IV fluids to 75 mL an hour. 5. Decrease methylprednisolone to 60 q.12. 6. Start trazodone 50 at bedtime. 7. Restart Pristiq 50 daily, lisinopril 20 q.a.m., and levothyroxine 100 daily. Hopefully can discharge home possibly tomorrow. Job ID: [id number]
[2018-11-27] MEDS ORDERED: ALPRAZolam 0.5 MG TAB PO PRN (16:02)
[2018-11-27] MEDS ORDERED: diphenhydrAMINE 12.5 MG/5 ML UDCUP PO PRN (16:02)
[2018-11-27] MEDS: ALPRAZolam 0.5 MG TAB PO SCH ×2 (16:55→21:28)
[2018-11-27] MEDS ORDERED: traZODone HCl 50 MG TAB PO SCH (21:00)
[2018-11-27] MEDS ORDERED: methylPREDNISolone Sod Succ 40 MG VIAL IVP SCH (21:00)
[2018-11-27] MEDS: predniSONE 20 MG TAB PO SCH (21:27)
[2018-11-27] MEDS: Pregabalin 50 MG CAP PO SCH (21:27)
[2018-11-28] MEDS ORDERED: Levothyroxine Sodium 100 MCG TAB PO SCH (06:00)
[2018-11-28] MEDS: predniSONE 20 MG TAB PO SCH (08:43)
[2018-11-28] MEDS: tiZANidine HCl 4 MG TAB PO SCH (08:43)
[2018-11-28] MEDS: Pregabalin 50 MG CAP PO SCH (08:43)
[2018-11-28] MEDS: ALPRAZolam 0.5 MG TAB PO SCH (08:44)
[2018-11-28] MEDS: Enoxaparin Sodium 40 MG/0.4 ML SYRINGE SC SCH (08:44)
[2018-11-28] MEDS: Famotidine/PF 20 mg/2ml Vial SLOW IVP SCH (08:45)
[2018-11-28] MEDS ORDERED: Venlafaxine HCl XR 75 MG CAP PO SCH (09:00)
[2018-11-28] MEDS ORDERED: Lisinopril 20 MG TAB PO SCH (09:00)
[2018-11-28 11:13] VITALS: BP 123/82; TEMP 98.1
--- NOTE | 2018-11-28 18:22 | CON ---
DATE OF CONSULTATION: This is Abraham Ramsey PA-C dictating a report for Magan Wagner MD. This is a 50-minute initial patient evaluation, of which greater than 50% of the exam was spent in counseling and coordinating the patient's care. Remainder of the exam was spent in review of the patient's medical records and formulation of treatment plan. CHIEF COMPLAINT: Right greater than left hip and lateral thigh pain with known L4-L5 disk protrusion and facet cyst. HISTORY OF PRESENT ILLNESS: Ms. Lim is a 48-year-old female, who presented to [facility] Emergency room a few days ago for the above complaints. The patient does have a history of seeing Dr. Wagner as an outpatient and was suggested to have L4-5 epidural steroid injection with Dr. Parrish as well as aspiration of the facet cyst at this level. The patient states that since undergoing the injection and cyst aspiration she experienced now left greater than right lower extremity symptoms, so severe that she presented to the emergency room. She was later placed on a DIE CUTTING MACHINE OPERATOR to help with her pain control. Currently, the patient states her pain is under better control and she has been able to walk to the bathroom. She denies bowel or bladder incontinence. She denies falls. Review of the patient's lumbar spine MRI compared to her previous lumbar spine MRI in October of 2018 notes improvement in the facet cyst at the L4-5 level, but slight progression of the L4-5 disk protrusion, worse on the left than the right. PHYSICAL EXAMINATION: NEUROLOGIC: The patient is awake, alert, and appropriate. GCS is 15. She has good strength in the bilateral lower extremities with intact sensation to light touch throughout. She looks rather comfortable lying in bed. IMPRESSION AND DIAGNOSES: 1. Known L4-5 herniated nucleus pulposus with lumbar spinal stenosis and lumbar facet cyst. 2. Improvement of L4-5 facet cyst after lumbar cyst drainage 2 to 3 days ago. PLAN: At this time, the patient does not require any type of emergent neurosurgical intervention. She is scheduled to see us in the office in the next several weeks and we will keep this followup appointment as scheduled. She may certainly undergo further epidural steroid injections to see if this will improve her pain, but at this time we will keep followup as scheduled. The patient is appreciative of the care and I have let her know that we should maximize her rehab potential including working with therapies so that we can improve her function. She is agreeable to this. Please call with any changes in the patient's neurologic status. Otherwise, we will sign off. Job ID: [id number]
--- NOTE | 2018-11-29 04:49 | DIS ---
DATE OF ADMISSION: 11/25/2018 DATE OF DISCHARGE: 11/28/2018 DISCHARGE DIAGNOSES: 1. Intractable lumbar paraspinal muscle spasm. 2. Status post epidural steroid injection and drainage of a synovial cyst. 3. Reactive leukocytosis. 4. Fibromyalgia. 5. Depression. 6. Reflux. 7. Hypertension and hyperlipidemia. 8. Morbid obesity. 9. Tobacco abuse. 10. Hypothyroid. DISCHARGE MEDICATIONS: 1. Pristiq 50 daily. 2. Sulindac 150 daily. 3. Lyrica one in the a.m., two in the p.m. 4. D3. 5. Lisinopril 20. 6. Zofran p.r.n. 7. Dicyclomine 20 q.i.d. p.r.n. 8. Crestor 10 daily. 9. Levothyroxine 100 daily. 10. Omeprazole 40 daily. 11. Tramadol 50 p.r.n. 12. Tylenol No. 3 p.r.n. 13. Tizanidine 4 p.o. t.i.d. p.r.n. BRIEF HISTORY: This is a 48-year-old white female with chronic low back pain, presented with severe right low back pain. On 11/[address] Parrish and had a lumbar injection as well as drainage of a right L5 synovial cyst. The patient did well until earlier in the day of admission, she developed acute onset of right low back pain. She came to the ER and was writhing in pain. This lasted for over 12 hours. She was initially given fentanyl, morphine, and Dilaudid IV. HOSPITAL COURSE: The patient's creatinine was noted to be elevated at 1.89. Her white count was also elevated. The patient was writhing for extensive period of time. Finally, she was started on a GENERAL ASSISTANT pump by Anesthesia and this appear to calm things down. The following day she was groggy. This morning, she is doing very well. She is feeling much better. She is able to get around and ambulate. She is now ready for discharge. She will be discharged on the above medications. She will follow up with Dr. Parrish and myself. Abdominal pelvic CT was found to be unremarkable. A thoracic spine MRI had significant motion artifact and was of limited use. The lumbar spine MRI did show a broad-based disk protrusion at L4-L5 with moderate narrowing of the central canal and impingement on the left L5 nerve root. Chest x-ray was unremarkable. Job ID: [id number]
== END 2018-11-28 11:15 | disposition home or self-care (01) | DRG 552 ==
LOC: ERS 14:35 → CCU 22:44 → T4-A 11-27 19:04
PROVIDERS: ADMIT Family Medicine; ATTEND Family Medicine
DX: M51.26 Other intervertebral disc displacement, lumbar region (principal); M62.830 Muscle spasm of back; E86.0 Dehydration; M79.7 Fibromyalgia; F32.9 Major depressive disorder, single episode, unspecified; K21.9 Gastro-esophageal reflux disease without esophagitis; I10 Essential (primary) hypertension; E78.5 Hyperlipidemia, unspecified; E66.01 Morbid (severe) obesity due to excess calories; Z68.39 Body mass index [BMI] 39.0-39.9, adult; E03.9 Hypothyroidism, unspecified; F17.200 Nicotine dependence, unspecified, uncomplicated
CPT/HCPCS: 36415; 64483; 64484; 71045; 72146; 72148; 74176; 80053; 81003; 81015; 82550; 83605; 85025; 87040; 87086; 87149; 93005; 94760; J0131; J0696; J1040; J1170; J1650; J2001; J2060; J2270; J2405; J2920; J2930; J3010; J3370; J7050; Q9967; S0020; S0028

== ENCOUNTER 2018-12-19 15:08 | Outpatient (CLI) | payer MEDICARE ==
--- NOTE | 2018-12-19 16:02 | RAD ---
CERVICAL SPINE THREE VIEWS: History: Cervical radiculopathy. FINDINGS: Cervical vertebrae maintain normal height. There are mild to moderate degenerative changes noted. Sli ght anterolisthesis at C4-5 measured at 2-3 mm. Mild loss of disc space at C6-7. Posterior spondylosi s at C6-7. Prominent anterior osteophytes at C6-7. There is mild facet hypertrophy and seen on the AP view. IMPRESSION: Moderate degenerative changes of the cervical spine as described. POS: [facility]
--- NOTE | 2018-12-19 17:25 | MRI ---
MR CERVICAL SPINE WITHOUT CONTRAST: Indication: Cervical radiculopathy. Comparison: No MR comparisons are available. Cervical spine radiographs from 12-19-18 were reviewed. FINDINGS: The bone marrow signal intensity is within normal limits. The visualized posterior fossa is unremarka ble. There is a small Tornwaldt cyst within the posterior nasopharynx measuring 1 cm. There is modic endplate degenerative change at C6-7. C2-3: There is a broad based disc bulge with uncal vertebral compression and facet joint degenerative change. There is no appreciably central canal or neural foraminal narrowing. C3-4: There is broad based bulge with facet joint degenerative change and uncal vertebral hypertrophy inducing mild right and moderate left neural foraminal narrowing. There is mild central canal narrow ing without cord contact. C4-5: There is a broad based disc bulge and uncal vertebral bridging facet joint degenerative change inducing mild central canal narrowing without cord contact. C5-6: There is a broad based bulge and uncal vertebral hypertrophy and facet joint degenerative hdez e but no appreciably neural foraminal narrowing. There is a broad based bulge mildly effacing the krystle tral subarachnoid space without cord contract. C6-7: There is a broad based bulge asymmetric to the left with facet joint degenerative change induci ng moderate left neural foraminal narrowing. There is mild central canal narrowing. C7-T1: There is no central canal narrowing or neural foraminal narrowing. IMPRESSION: 1. Multilevel mild spondylosis from C3-4 through C6-7 with mild central canal narrowing. This is most pronounced at C6-7. 2. Moderate left neural foraminal narrowing at C6-7. 3. Moderate left and mild right neural foraminal narrowing at C3-4. POS: [facility] [place]
== END 2018-12-19 15:09 | disposition home or self-care (01) ==
LOC: TBSIIMAG 15:08
PROVIDERS: ATTEND Surgery
DX: M47.22 Other spondylosis with radiculopathy, cervical region (principal); M48.02 Spinal stenosis, cervical region
CPT/HCPCS: 72040; 72141

== ENCOUNTER 2020-02-15 12:42 | Outpatient (CLI) | payer MEDICARE ==
--- NOTE | 2020-02-15 13:50 | MRI ---
MRI lumbar spine noncontrast: HISTORY: Low back pain, radiating down the left leg with numbness and tingling times many years. COMPARISON: 11/25/2018, 11/09/2018 FINDINGS: Appropriate T1 marrow signal intensity of the lumbar vertebra. Vertebral body height is maintained. N o fracture. No significant STIR hyperintensity to suggest vertebral body edema or ligamentous injury. Stable straightening of lumbar lordosis. Appropriate signal intensity of the paraspinal muscles and solid organs. Conus medullaris terminates at the inferior aspect of L1. Sagittal images of the sacrum demonstrate preserved presacral fat. Sacral marrow signal intensity is within normal limits. Sagittal images demonstrate patent neural foramina. Uterus has a grossly normal signal intensity. Technique limits evaluation. T12-L1:Adequate disc hydration. No significant central canal stenosis or significant neural foraminal narrowing L1-L2:Adequate disc hydration. No significant central canal stenosis or significant neural foraminal narrowing L2-L3:Adequate disc hydration. No significant central canal stenosis or significant neural foraminal narrowing. Mild ligament flavum thickening and facet hypertrophy. L3-L4:Adequate disc hydration. Broad-based disc bulge, ligament flavum thickening and facet hypertrop hy result in mild central canal stenosis. Right neural foramen is patent. Mild left neural foraminal narrowing due to disc material. L4-L5:Adequate disc hydration. No significant loss of disc space height. Broad-based disc bulge, liga ment flavum thickening and facet hypertrophy result in mild central canal stenosis. Previously noted synovial cyst is no longer evident. There is moderate to severe bilateral facet hypertrophy wit h fluid in both facet joints. Mild bilateral neural foraminal narrowing predominantly due to disc material L5-S1:Adequate disc hydration. No significant central canal stenosis or significant neural foraminal narrowing. Stable bilateral facet hypertrophy. IMPRESSION: 1. Previously identified right-sided synovial cyst is no longer evident. 2. Redemonstration of posterior element hypertrophy at L4-L5 and L5-S1. 3. Degenerative changes of the lumbar spine as detailed above. Broad-based disc bulge at L4-L5 with m ild central canal stenosis. Transcribed Date/Time: 02/15/2020 6:32 PM
== END 2020-02-15 12:43 | disposition home or self-care (01) ==
LOC: BICMRI 12:42
PROVIDERS: ATTEND Orthopaedic Surgery
DX: M54.5 Low back pain (principal); M48.061 Spinal stenosis, lumbar region without neurogenic claudication; M47.816 Spondylosis without myelopathy or radiculopathy, lumbar region; M47.817 Spondylosis without myelopathy or radiculopathy, lumbosacral region; M51.9 Unspecified thoracic, thoracolumbar and lumbosacral intervertebral disc disorder
CPT/HCPCS: 72148

== ENCOUNTER 2021-02-10 18:00 | Outpatient (CLI) | payer MEDICARE | END 2021-02-10 18:01 | disposition home or self-care (01) | LOC: SLEEPLAB 18:00 | PROVIDERS: ATTEND Family Medicine | DX: G47.10 Hypersomnia, unspecified (principal); G47.33 Obstructive sleep apnea (adult) (pediatric); R53.83 Other fatigue; G47.00 Insomnia, unspecified; R06.83 Snoring; E66.9 Obesity, unspecified; Z68.41 Body mass index [BMI] 40.0-44.9, adult | CPT/HCPCS: 95806 ==

== ENCOUNTER 2021-02-26 11:53 | Outpatient (CLI) | payer MEDICARE, OTHER | END 2021-02-26 11:54 | disposition home or self-care (01) | LOC: DTY/OP 11:53 | PROVIDERS: ATTEND Family Medicine | DX: E11.9 Type 2 diabetes mellitus without complications (principal) | CPT/HCPCS: 97802 ==

== ENCOUNTER 2021-03-13 14:20 | Outpatient (CLI) | payer MEDICARE | END 2021-03-13 14:21 | disposition home or self-care (01) | LOC: BICMAMMO 14:20 | PROVIDERS: ATTEND Family Medicine | DX: Z12.31 Encounter for screening mammogram for malignant neoplasm of breast (principal); Z80.3 Family history of malignant neoplasm of breast; Z91.89 Other specified personal risk factors, not elsewhere classified | CPT/HCPCS: 77063; 77067 ==

== ENCOUNTER 2025-03-15 09:00 | Inpatient (IN) | payer OTHER ==
[2025-03-15 09:20] VITALS: BMI 43.2
[2025-03-27] MEDS ORDERED: Acetaminophen 500 MG TAB ONE (07:02)
[2025-03-27] MEDS ORDERED: Ketorolac Tromethamine 30 MG (1 mL) VIAL ONE (07:02)
[2025-03-27] MEDS ORDERED: CEFAZOLIN 2 GM VIAL ONE (07:03)
[2025-03-27] MEDS ORDERED: Heparin 5,000 UNITS/ML VIAL ONE (07:03)
[2025-03-27] MEDS ORDERED: PROPOFOL 20 ML ONE ×2 (08:11→10:24)
[2025-03-27] MEDS ORDERED: fentaNYL PF 100 MCG/2 ML SYRINGE ONE ×3 (08:11→11:49)
[2025-03-27] MEDS ORDERED: Lidocaine 1% PF 5 ML VIAL ONE (08:12)
[2025-03-27] MEDS ORDERED: Rocuronium Bromide 10 MG/ML (10ML VIAL) ONE (08:12)
[2025-03-27] MEDS ORDERED: Bupivacaine 0.25% HCL 30 ML VIAL ONE (08:49)
[2025-03-27] MEDS ORDERED: PHENYLEPHRINE-NS 100 MCG/ML 10 ML SYRINGE ONE (10:05)
[2025-03-27] MEDS ORDERED: Ondansetron PF 4 MG/2 ML Vial ONE ×2 (10:33→11:25)
[2025-03-27] MEDS ORDERED: SUGAMMADEX SODIUM 200 MG/2 ML VIAL ONE (10:34)
[2025-03-27] MEDS ORDERED: hydrALAZINE 20 MG/ML VIAL SLOW IVP PRN (11:45)
[2025-03-27] MEDS ORDERED: Albuterol 200 PUFF (6.7GM INHALER) INH PRN (11:45)
[2025-03-27] MEDS ORDERED: Glucagon 1 MG/ML KIT IM PRN (11:45)
[2025-03-27] MEDS ORDERED: Dextrose 50% Abboject 50 ML SYRINGE SLOW IVP PRN (11:45)
[2025-03-27] MEDS: oxyCODONE 5 MG TAB PO PRN (16:08)
[2025-03-27] MEDS: Ondansetron PF 4 MG/2 ML Vial IVP PRN (19:54)
[2025-03-28] MEDS: diphenhydrAMINE 50 MG/ML VIAL IVP PRN (00:35)
[2025-03-28 05:12] LABS: #Basophils Less than 0.03 10x3/uL (0.0-0.2); #Eosinophils Less than 0.03 10x3/uL (0.0-0.7); #Monocytes 1.05 10x3/uL (0.11-0.59); #Neutrophils 10.68 10x3/uL (1.40-6.50); %Basophils 0.1 % (0.0-1.0); %Eosinophils 0.0 % (0.0-10.0); %Lymphocytes 13.4 % (21.0-51.0); %Monocytes 7.7 % (0.0-10.0); %Neutrophils 78.4 % (42.0-75.0); Hematocrit 40.0 % (36.0-47.0); Hemoglobin 12.7 g/dL (12.0-16.0); Mean Corpuscular Hemoglobin 29.2 pg (27.0-31.0); Mean Corpuscular Volume 92.0 fL (78.0-98.0); Platelet Count 262 10x3/uL (130-400); Red Blood Cell (RBC) Count 4.35 mill/uL (4.20-5.40); White Blood Cell (WBC) Count 13.62 10x3/uL (4.8-10.8)
[2025-03-28 05:21] LABS: Anion Gap 14 mmol/L (10-20); BUN (Urea Nitrogen) 13 mg/dL (9.8-20.1); Calc. Creatinine Clearance 156 mL/min (70-130); Calcium 9.0 mg/dL (7.8-10.44); Carbon Dioxide 23 mmol/L (22-29); Chloride 107 mmol/L (98-107); Glucose 119 mg/dL (70-105); Potassium 4.3 mmol/L (3.5-5.1); Sodium 140 mmol/L (136-145)
[2025-03-28] MEDS: Losartan 25 MG TAB PO SCH (09:02)
[2025-03-28] MEDS: Enoxaparin 40 MG (0.4 mL) SYRINGE SC SCH (09:02)
[2025-03-28] MEDS: Pantoprazole 40 MG VIAL IVP SCH (09:03)
[2025-03-29 12:54] VITALS: BP 136/82; TEMP 98.5
== END 2025-03-29 19:00 | disposition home or self-care (01) | DRG 621 ==
LOC: SURG A 03-27 06:43 → SURG B 03-27 12:40
PROVIDERS: ADMIT Surgery; ATTEND Surgery
PROC: 0D164Z9 Bypass Stomach to Duodenum, Percutaneous Endoscopic Approach (ICD-10-PCS; principal; 2025-03-27)
PROC: 8E0W4CZ Robotic Assisted Procedure of Trunk Region, Percutaneous Endoscopic Approach (ICD-10-PCS; 2025-03-27)
DX: E66.01 Morbid (severe) obesity due to excess calories (principal); Z68.41 Body mass index [BMI] 40.0-44.9, adult; E11.9 Type 2 diabetes mellitus without complications; E78.5 Hyperlipidemia, unspecified; I10 Essential (primary) hypertension; Z79.899 Other long term (current) drug therapy
CPT/HCPCS: 36415; 36416; 80048; 85025; J0169; J0665; J1100; J1200; J1644; J1650; J1885; J2405; J2470; J2550; J2704; J3010; J7030; S2900

== ENCOUNTER 2025-04-02 11:15 | Emergency (ER) | payer OTHER ==
[~2025-04-02 11:15] MED LIST changes: -ISOVUE-370 76%-LOCM 1 ML ONE; +Iopamidol-370 76% 500 ML MDV (1 ML CHARGE) ONE
[2025-04-02 11:54] LABS: #Basophils 0.03 10x3/uL (0.0-0.2); #Eosinophils 0.12 10x3/uL (0.0-0.7); #Monocytes 0.52 10x3/uL (0.11-0.59); #Neutrophils 7.99 10x3/uL (1.40-6.50); %Basophils 0.3 % (0.0-1.0); %Eosinophils 1.2 % (0.0-10.0); %Lymphocytes 10.5 % (21.0-51.0); %Monocytes 5.3 % (0.0-10.0); %Neutrophils 82.3 % (42.0-75.0); Hematocrit 38.5 % (36.0-47.0); Hemoglobin 12.2 g/dL (12.0-16.0); Mean Corpuscular Hemoglobin 29.1 pg (27.0-31.0); Mean Corpuscular Volume 91.9 fL (78.0-98.0); Platelet Count 215 10x3/uL (130-400); Red Blood Cell (RBC) Count 4.19 mill/uL (4.20-5.40); White Blood Cell (WBC) Count 9.72 10x3/uL (4.8-10.8)
[2025-04-02 12:21] LABS: ALT (SGPT) 8 U/L (Less than 34); AST (SGOT) 16 U/L (11-34); Albumin 3.4 g/dL (3.1-4.5); Alkaline Phosphatase 84 U/L (40-110); Anion Gap 19 mmol/L (10-20); BUN (Urea Nitrogen) 12 mg/dL (9.8-20.1); Bilirubin, Total 0.3 mg/dL (0.3-1.2); Calc. Creatinine Clearance 0 mL/min (70-130); Calcium 8.6 mg/dL (7.8-10.44); Carbon Dioxide 19 mmol/L (22-29); Chloride 109 mmol/L (98-107); Globulin 3.4 g/dL (2.4-3.5); Glucose 113 mg/dL (70-105); Potassium 4.0 mmol/L (3.5-5.1); Sodium 143 mmol/L (136-145)
[2025-04-02] MEDS ORDERED: Droperidol 5 MG/2 ML VIAL ONE (12:33)
[2025-04-02] MEDS ORDERED: Fleet Saline Enema 133 ML BOT PR SCH (14:15)
== END 2025-04-02 16:34 | disposition home or self-care (01) ==
LOC: ERS 11:15
DX: K56.41 Fecal impaction (principal); I10 Essential (primary) hypertension; E03.9 Hypothyroidism, unspecified; K58.9 Irritable bowel syndrome, unspecified; F17.210 Nicotine dependence, cigarettes, uncomplicated; Z79.890 Hormone replacement therapy; Z79.899 Other long term (current) drug therapy
CPT/HCPCS: 74177; 80053; 83880; 85025; 93005; J1790; 96374